=== PATIENT | female | born 1960 | race Caucasian/White ===

== ENCOUNTER 2016-07-26 10:04 | Emergency (ER) | payer OTHER ==
[~2016-07-26] VITALS: Ht 157.5 cm; Wt 114.5 kg
[~2016-07-26 10:04] MED LIST: ABAT125S; AZEL205.; CARI250T; DULO60CA7 PO; FLUT100D; GABA600T PO; HYDR200T5 PO; LEFL20TA16 PO; META800T; MONT10TA9; ONDA4TAB7; PANT40TA3; PRAV20TA2; ZOLP12.52
[2016-07-26] MEDS ORDERED: ATOR40TA78 PO (10:39)
[2016-07-26] MEDS ORDERED: DILT360C26 PO (10:39)
[2016-07-26] MEDS ORDERED: OXYcodone/APAP 5/325MG TABLET ONE (10:45)
[2016-07-26] MEDS ORDERED: DIAZEPAM 5 MG TABLET ONE (10:45)
[2016-07-26] MEDS ORDERED: DIAZEPAM 10 MG TABLET PO ONE (11:00)
[2016-07-26] MEDS ORDERED: OXYcodone/APAP 5/325MG TABLET PO ONE (11:00)
[2016-07-26 12:11] VITALS: BP 133/75
== END 2016-07-26 12:14 | disposition home or self-care (01) ==
LOC: ED 10:39
DX: S92.355A Nondisplaced fracture of fifth metatarsal bone, left foot, initial encounter for closed fracture (principal); S13.4XXA Sprain of ligaments of cervical spine, initial encounter; S93.412A Sprain of calcaneofibular ligament of left ankle, initial encounter; S80.12XA Contusion of left lower leg, initial encounter; E78.5 Hyperlipidemia, unspecified; M06.9 Rheumatoid arthritis, unspecified; J45.909 Unspecified asthma, uncomplicated; W18.09XA Striking against other object with subsequent fall, initial encounter; Y93.89 Activity, other specified; Y92.89 Other specified places as the place of occurrence of the external cause; Y99.9 Unspecified external cause status
CPT/HCPCS: 29515; 99284

== ENCOUNTER → 2016-08-10 | Outpatient (CLI) | payer OTHER ==
[~2016-08-10] MED LIST changes: +ATOR40TA78 PO; +DILT360C26 PO
== END | disposition home or self-care (01) ==
LOC: CFH 10:36
PROVIDERS: ATTEND Internal Medicine Rheumatology
DX: Z13.820 Encounter for screening for osteoporosis (principal); M81.0 Age-related osteoporosis without current pathological fracture; M85.88 Other specified disorders of bone density and structure, other site
CPT/HCPCS: 77080

== ENCOUNTER → 2017-10-08 | Outpatient (CLI) | payer OTHER ==
[~2017-10-08] MED LIST changes: +ALPR-475 PO; -AZEL205.; +AZEL205. NS; +CALCIUM PO; -CARI250T; +CARI250T PO; +CETI10TA24 PO; +CHOL5000 PO; +DEXL60CA2 PO; +DILT240C PO; +DILT300C44 PO; +DILT360C PO; +ESTR1TAB17 PO; +FAMO1TAB25 PO; -FLUT100D; +FLUT100D INH; +FLUT1AER INH; +FLUT9.9S NS; +FURO-93 PO; +Hemp Oil PO; +IPRA0.2S35 INH; +LEVA1.2524 INH; +LEVA15HF4 INH; +MOME13HF INH; +MULT-717 PO; +NABU750T PO; +ONDA4TAB13 SL; +OXYC-307 PO; +POTA10TA PO; +SULF500T36 PO; +TIZA4TAB PO; +VITA1TAB19 PO; +ZAFI20TA12 PO; +ZINC PO; +ZOLP10TA PO; +[UNRECOGNIZED DRUG - OTHER] PO
== END | disposition home or self-care (01) ==
LOC: STAR 11:20
PROVIDERS: ATTEND Surgery
DX: Z02.9 Encounter for administrative examinations, unspecified (principal)

== ENCOUNTER 2017-10-20 08:13 | Day surgery (SDC) | payer OTHER ==
[2017-10-08 13:14] VITALS: BP 122/84
[~2017-10-20] VITALS: Ht 162.6 cm; Wt 116.3 kg
[2017-10-20 09:05] VITALS: BP 122/84
[2017-10-20] MEDS ORDERED: FENTANYL PF 250 MCG/5ML ONE (09:14)
[2017-10-20] MEDS ORDERED: MIDAZOLAM 1 MG/ML, 2ML ONE (09:14)
[2017-10-20] MEDS ORDERED: PROPOFOL 10 MG/ML, 20ML ONE (09:15)
[2017-10-20] MEDS ORDERED: ROCURONIUM 10MG/ML,5ML ONE (09:16)
[2017-10-20] MEDS ORDERED: NEOSTIGMINE 1 MG/ML, 10ML ONE (09:17)
[2017-10-20] MEDS ORDERED: GLYCOPYRROLATE 0.4 MG/2 ML, 2ML ONE (09:17)
[2017-10-20] MEDS ORDERED: CEFAZOLIN 1,000 MG ONE ×2 (09:18)
[2017-10-20] MEDS ORDERED: WATER-INJECTION,STERILE 10 ML IV ONE (09:18)
[2017-10-20] MEDS ORDERED: ONDANSETRON 2MG/ML, 2ML ONE (09:19)
[2017-10-20] MEDS ORDERED: DEXAMETHASONE 4 MG/ML, 1ML ONE ×2 (09:19)
[2017-10-20] MEDS ORDERED: LACTATED RINGERS 1,000 ML IV SCH (09:19)
[2017-10-20] MEDS ORDERED: LIDOCAINE-MPF 1%, 5ML ONE (09:19)
[2017-10-20] MEDS ORDERED: PRED5TAB PO (09:24)
[2017-10-20] MEDS ORDERED: LIDOCAINE-MPF 1%, 2ML INFIL ONE (09:30)
[2017-10-20] MEDS ORDERED: BUPIVACAINE/PF 0.5% ONE (10:21)
[2017-10-20] MEDS ORDERED: HYDROCORTISONE 100 MG INJ. ONE (10:40)
[2017-10-20] MEDS ORDERED: SCOPOLAMINE PATCH, 1.5MG PATCH.TD72 TD ONE (10:46)
[2017-10-20] MEDS ORDERED: KETOROLAC 30 MG/1 ML ONE (10:58)
[2017-10-20] MEDS ORDERED: MEPERIDINE/PF 25MG/0.5ML IVPush PRN (11:00)
[2017-10-20] MEDS ORDERED: hydrALAzine 20 MG/ML, 1ML IV PRN (11:00)
[2017-10-20] MEDS ORDERED: ACETAMINOPHEN 325 MG TABLET PO PRN (11:00)
[2017-10-20] MEDS ORDERED: HALOPERIDOL 5 MG/ML IV PRN (11:00)
[2017-10-20] MEDS ORDERED: MORPHINE SULFATE 4 MG/ML, 1ML IVPush PRN (11:00)
[2017-10-20] MEDS ORDERED: DIPHENHYDRAMINE 50 MG/ML, 1ML IM PRN (11:00)
[2017-10-20] MEDS ORDERED: LABETALOL 5MG/ML, 20ML IV PRN (11:00)
[2017-10-20] MEDS ORDERED: ONDANSETRON 2MG/ML, 2ML IV PRN (11:00)
[2017-10-20] MEDS ORDERED: FENTANYL PF 100 MCG/2ML IV PRN (11:00)
[2017-10-20] MEDS ORDERED: ONDANSETRON ODT 8 MG PO PRN (11:00)
[2017-10-20] MEDS ORDERED: PHENYLEPHRINE 10 MG/ML ONE (11:05)
[2017-10-20] MEDS ORDERED: HYDROmorphone 2 MG/ML, 1ML ONE (12:18)
[2017-10-20] MEDS ORDERED: PROMETHAZINE 25 MG/ML, 1ML ONE (12:18)
[2017-10-20] MEDS ORDERED: OXYcodone 5 MG/5 ML ORAL.SOL UDC ONE (12:19)
[2017-10-20] MEDS: HYDROmorphone 2 MG/ML, 1ML IV PRN ×3 (12:20→12:40)
[2017-10-20] MEDS ORDERED: ONDANSETRON 2MG/ML, 2ML IVPush PRN (12:30)
[2017-10-20] MEDS ORDERED: morphine SULFATE 10 MG/ML, 1ML IVPush PRN (12:30)
[2017-10-20] MEDS ORDERED: OXYcodone 5 MG/5 ML ORAL.SOL UDC PO PRN (12:30)
[2017-10-20] MEDS: OXYcodone 5 MG/5 ML ORAL.SOL UDC PO PRN ×2 (12:33→16:13)
[2017-10-20] MEDS ORDERED: PROMETHAZINE 25 MG/ML, 1ML IV PRN (13:00)
== END 2017-10-20 17:15 | disposition home or self-care (01) ==
LOC: OUT 08:13 → 4NOR 14:28 → OUT 17:15
PROVIDERS: ATTEND Surgery
DX: K43.2 Incisional hernia without obstruction or gangrene (principal); E78.5 Hyperlipidemia, unspecified; K21.9 Gastro-esophageal reflux disease without esophagitis; Z88.5 Allergy status to narcotic agent; Z88.8 Allergy status to other drugs, medicaments and biological substances; Z88.1 Allergy status to other antibiotic agents; Z91.040 Latex allergy status; Z79.899 Other long term (current) drug therapy; Z90.710 Acquired absence of both cervix and uterus; Z98.890 Other specified postprocedural states; Z87.39 Personal history of other diseases of the musculoskeletal system and connective tissue; Z79.01 Long term (current) use of anticoagulants; Z72.89 Other problems related to lifestyle
CPT/HCPCS: 49654; 88305; C1781; J0690; J1100; J1170; J1720; J1885; J2250; J2370; J2405; J2550; J2704; J2710; J3010; J3490; J7120; S2900

== ENCOUNTER 2018-05-10 10:49 | Inpatient (IN) | payer OTHER ==
[~2018-05-10] VITALS: Ht 162.6 cm; Wt 119.3 kg
[~2018-05-10 10:49] MED LIST changes: +PRED5TAB PO
--- NOTE | 2018-05-10 11:27 | NUR ---
pt to ed for sob and cough x2 weeks. pt wears 2LC at night and has had to increase to 2-3LNC at all times. connected to all monitors. vss. awaiting md assessment.
--- NOTE | 2018-05-10 11:47 | NUR ---
xray at bedside.
[2018-05-10 12:02] LABS: BASOPHILS # (AUTO) 0.02 x10^3/uL (0-0.1); BASOPHILS % (AUTO) 0 % (0-1); EOSINOPHILS # (AUTO) 0.01 x10^3/uL (0-0.4); EOSINOPHILS % (AUTO) 0 % (1-7); LYMPHOCYTES # (AUTO) 1.41 x10^3/uL (1-3.4); LYMPHOCYTES % (AUTO) 19 % (22-44); MD NO; MEAN CORPUSCULAR HEMOGLOBIN 30.2 pg (27.0-34.8); MEAN CORPUSCULAR HGB CONC 33.7 g/dL (32.4-35.8); MEAN CORPUSCULAR VOLUME 89.8 fL (80-100); MEAN PLATELET VOLUME 7.3 fL (7.4-10.4); MONOCYTES # (AUTO) 0.81 x10^3/uL (0.2-0.8); MONOCYTES % (AUTO) 11 % (2-9); NEUTROPHILS # (AUTO) 5.28 x10^3/uL (1.8-6.8); NEUTROPHILS % (AUTO) 70 % (42-75); PLATELET COUNT 266 x10^3/uL (130-400); RED BLOOD COUNT 5.08 x10^6/uL (3.82-5.3); RED CELL DISTRIBUTION WIDTH 14.4 % (9.6-15.2)
--- NOTE | 2018-05-10 12:08 | NUR ---
iv established. vss. pt resting in room wtih family at bedside. awaiting lab results at this time.
[2018-05-10 12:11] LABS: ALBUMIN 3.6 g/dL (3.4-5.0); ANION GAP 7 mmol/L (5-15); CHLORIDE 109 mmol/L (98-107)
[2018-05-10 12:12] LABS: CREATININE 0.67 mg/dL (0.55-1.02)
--- NOTE | 2018-05-10 13:10 | NUR ---
pt resting in room with family at bedside. vss. awaiting d dimer results.
--- NOTE | 2018-05-10 13:19 | NUR ---
d dimer results received. new order received for cta. pt aware. no needs at this time. vss.
[2018-05-10 13:20] LABS: RAPID INFLUENZA A Negative (Negative); RAPID INFLUENZA B Negative (Negative)
[2018-05-10] MEDS ORDERED: PROMETHAZINE/COD. 10MG/6.25MG/5 ML ORAL SOL PO PRN (13:30)
--- NOTE | 2018-05-10 14:07 | NUR ---
pt to ct.
[2018-05-10] MEDS ORDERED: OMNIPAQUE 350 MG/ML, 100ML BOTTLE ONE (14:20)
--- NOTE | 2018-05-10 14:44 | NUR ---
all results back at this time. chart up for recheck. pt resting in room. vss. no needs at this time.
--- NOTE | 2018-05-10 16:02 | NUR ---
pt resting in oom. no needs at this time. vss. will be admitted. awaiting bed assignment.
[2018-05-10] MEDS ORDERED: ZOLPIDEM 10MG TABLET PO PRN (17:00)
[2018-05-10] MEDS ORDERED: LEVALBUTEROL TARTRATE INH PRN (17:00)
[2018-05-10] MEDS ORDERED: TIZANIDINE 4MG TABLET PO PRN (17:00)
[2018-05-10] MEDS ORDERED: ALBUTEROL SULFATE 2.5 MG/3 ML ONE (17:12)
[2018-05-10] MEDS ORDERED: BENZONATATE 100 MG CAPSULE ONE (17:14)
[2018-05-10] MEDS: BENZONATATE 100 MG CAPSULE PO SCH ×2 (17:27→21:13)
[2018-05-10] MEDS ORDERED: KETOROLAC 30 MG/1 ML IM PRN (17:30)
[2018-05-10] MEDS ORDERED: ACETAMINOPHEN 325 MG TABLET PO PRN (17:30)
[2018-05-10] MEDS ORDERED: IBUPROFEN 600 MG TABLET PO PRN (17:30)
[2018-05-10] MEDS ORDERED: DOCUSATE 100 MG CAPSULE PO PRN (17:30)
[2018-05-10] MEDS ORDERED: METHOCARBAMOL 500 MG TABLET PO PRN (17:30)
--- NOTE | 2018-05-10 17:31 | NUR ---
TELMA RN: PT MEDICATED PER MAR. FREQUENT, LOOSE COUGH NOTED BY RN. PT ABLE TO SPEAK IN SHORT 3-5 WORD SENTENCES BEFORE COUGHING OR SEEMING SLIGHTLY SHORT OF BREATH. PT AWARE WE ARE WAITING FOR ADMISSION. PT DENIES PAIN/NEEDS AT THIS TIME. AT BEDSIDE. CALL LIGHT WITHIN REACH.
[2018-05-10] MEDS ORDERED: ONDANSETRON ODT 4 MG SL PRN (18:00)
[2018-05-10] MEDS ORDERED: OXYcodone/APAP 5/325MG TABLET PO PRN (18:00)
[2018-05-10] MEDS ORDERED: ALBUTEROL SULFATE 2.5 MG/3 ML NPPB SCH (18:30)
[2018-05-10] MEDS ORDERED: ALBUTEROL SULFATE 2.5 MG/3 ML NPPB PRN (18:30)
[2018-05-10 19:00] VITALS: BP 125/83
[2018-05-10] MEDS: BUDESONIDE 0.5 MG/2 ML INHA INH SCH (20:40)
[2018-05-10] MEDS: ALBUTEROL SULFATE 2.5 MG/3 ML NPPB SCH (20:40)
[2018-05-10] MEDS ORDERED: GUAIFENESIN/COD200MG-20MG/10ML LIQUID PO SCH (21:00)
[2018-05-10] MEDS: AZELASTINE HCL NS SCH (21:00)
[2018-05-10] MEDS: ENOXAPARIN 40 MG/0.4 ML SQ SCH (21:12)
[2018-05-10] MEDS: ZAFIRLUKAST 20 MG TABLET PO SCH (21:12)
[2018-05-10] MEDS: FAMOTIDINE 20 MG TABLET PO SCH (21:12)
[2018-05-10] MEDS: DULOXETINE 30 MG CAPSULE.DR PO SCH (21:12)
[2018-05-10] MEDS: GABAPENTIN 300 MG CAPSULE PO SCH (21:13)
[2018-05-10] MEDS: SULFASALAZINE 500 MG TABLET PO SCH (21:13)
[2018-05-10] MEDS: FLUTICASONE NASAL SPRAY 16GM NAS SCH (21:13)
[2018-05-10] MEDS: ATORVASTATIN 80 MG TABLET PO SCH (21:15)
[2018-05-11 02:00] VITALS: BP 113/72
[2018-05-11 05:59] LABS: BASOPHILS # (AUTO) 0.01 x10^3/uL (0-0.1); BASOPHILS % (AUTO) 0 % (0-1); EOSINOPHILS # (AUTO) 0.11 x10^3/uL (0-0.4); EOSINOPHILS % (AUTO) 2 % (1-7); LYMPHOCYTES # (AUTO) 1.25 x10^3/uL (1-3.4); LYMPHOCYTES % (AUTO) 17 % (22-44); MD NO; MEAN CORPUSCULAR HGB CONC 33.5 g/dL (32.4-35.8); MEAN CORPUSCULAR VOLUME 89.8 fL (80-100); MEAN PLATELET VOLUME 7.2 fL (7.4-10.4); MONOCYTES # (AUTO) 0.66 x10^3/uL (0.2-0.8); MONOCYTES % (AUTO) 9 % (2-9); NEUTROPHILS # (AUTO) 5.34 x10^3/uL (1.8-6.8); NEUTROPHILS % (AUTO) 73 % (42-75); PLATELET COUNT 258 x10^3/uL (130-400); RED BLOOD COUNT 4.75 x10^6/uL (3.82-5.3); RED CELL DISTRIBUTION WIDTH 14.6 % (9.6-15.2)
[2018-05-11 06:03] LABS: ANION GAP 7 mmol/L (5-15); CALCIUM 8.3 mg/dL (8.5-10.1); CHLORIDE 108 mmol/L (98-107); CREATININE 0.68 mg/dL (0.55-1.02)
[2018-05-11 07:19] VITALS: BP 147/86
[2018-05-11] MEDS: ALBUTEROL SULFATE 2.5 MG/3 ML NPPB SCH ×4 (07:36→19:02)
[2018-05-11] MEDS: BUDESONIDE 0.5 MG/2 ML INHA INH SCH ×2 (07:36→19:02)
[2018-05-11] MEDS: AZELASTINE HCL NS SCH ×2 (08:55→21:00)
[2018-05-11] MEDS: FLUTICASONE NASAL SPRAY 16GM NAS SCH ×2 (08:55→21:00)
[2018-05-11] MEDS: DILTIAZEM 240 MG CAP.ER.24H PO SCH (08:56)
[2018-05-11] MEDS: GABAPENTIN 300 MG CAPSULE PO SCH ×2 (08:56→21:14)
[2018-05-11] MEDS: SULFASALAZINE 500 MG TABLET PO SCH ×2 (08:56→21:13)
[2018-05-11] MEDS: MULTIVITAMINS/MINERALS TABLET PO SCH (08:56)
[2018-05-11] MEDS: BENZONATATE 100 MG CAPSULE PO SCH ×3 (08:57→21:14)
[2018-05-11] MEDS: CHOLECALCIFEROL 5,000u TAB PO SCH (08:57)
[2018-05-11] MEDS: CETIRIZINE 10 MG TABLET PO SCH (08:57)
[2018-05-11] MEDS: HYDROXYCHLOROQUINE 200 MG TABLET PO SCH (08:57)
[2018-05-11] MEDS: MULTIVITS,STRESS FORMULA 1 TABLET PO SCH (08:57)
[2018-05-11] MEDS: GUAIFENESIN/COD200MG-20MG/10ML LIQUID PO PRN (10:10)
[2018-05-11 12:42] VITALS: BP 139/86
[2018-05-11 19:35] VITALS: BP 136/81
[2018-05-11] MEDS: ZAFIRLUKAST 20 MG TABLET PO SCH (21:00)
[2018-05-11] MEDS: FAMOTIDINE 20 MG TABLET PO SCH (21:13)
[2018-05-11] MEDS: DULOXETINE 30 MG CAPSULE.DR PO SCH (21:14)
[2018-05-11] MEDS: ENOXAPARIN 40 MG/0.4 ML SQ SCH (21:14)
[2018-05-11] MEDS: ATORVASTATIN 80 MG TABLET PO SCH (21:14)
[2018-05-12 02:11] VITALS: BP 128/81
[2018-05-12 07:00] VITALS: BP 123/83
[2018-05-12] MEDS: ALBUTEROL SULFATE 2.5 MG/3 ML NPPB SCH (07:00)
[2018-05-12] MEDS: FLUTICASONE NASAL SPRAY 16GM NAS SCH (08:22)
[2018-05-12] MEDS: DILTIAZEM 240 MG CAP.ER.24H PO SCH (08:22)
[2018-05-12] MEDS: BENZONATATE 100 MG CAPSULE PO SCH (08:23)
[2018-05-12] MEDS: SULFASALAZINE 500 MG TABLET PO SCH (08:23)
[2018-05-12] MEDS: CHOLECALCIFEROL 5,000u TAB PO SCH (08:23)
[2018-05-12] MEDS: GABAPENTIN 300 MG CAPSULE PO SCH (08:24)
[2018-05-12] MEDS: MULTIVITAMINS/MINERALS TABLET PO SCH (08:24)
[2018-05-12] MEDS: HYDROXYCHLOROQUINE 200 MG TABLET PO SCH (08:25)
[2018-05-12] MEDS: CETIRIZINE 10 MG TABLET PO SCH (08:26)
[2018-05-12] MEDS: AZELASTINE HCL NS SCH (08:26)
[2018-05-12] MEDS: GUAIFENESIN/COD200MG-20MG/10ML LIQUID PO PRN (08:29)
[2018-05-12] MEDS: MULTIVITS,STRESS FORMULA 1 TABLET PO SCH (08:36)
[2018-05-12] MEDS ORDERED: LEFLUNOMIDE 20 MG TABLET PO SCH (09:00)
[2018-05-12] MEDS: BUDESONIDE 0.5 MG/2 ML INHA INH SCH (09:00)
[2018-05-12] MEDS ORDERED: BENZ-17 PO (13:43)
[2018-05-12] MEDS ORDERED: BUDE0.5A INH (13:43)
[2018-05-12] MEDS ORDERED: PRED20TA PO (13:43)
== END 2018-05-12 16:25 | disposition home or self-care (01) | DRG 193 ==
LOC: ED 13:11 → EDIP 15:40 → 3NE 17:18
PROVIDERS: ADMIT Hospitalist; ATTEND Hospitalist
PROC: 5A09357 Assistance with Respiratory Ventilation, Less than 24 Consecutive Hours, Continuous Positive Airway Pressure (ICD-10-PCS; principal; 2018-05-12)
DX: J12.9 Viral pneumonia, unspecified (principal); J96.20 Acute and chronic respiratory failure, unspecified whether with hypoxia or hypercapnia; J45.901 Unspecified asthma with (acute) exacerbation; F11.20 Opioid dependence, uncomplicated; Z68.42 Body mass index [BMI] 45.0-49.9, adult; E78.5 Hyperlipidemia, unspecified; R00.0 Tachycardia, unspecified; G47.33 Obstructive sleep apnea (adult) (pediatric); G89.29 Other chronic pain; M06.9 Rheumatoid arthritis, unspecified; Z82.0 Family history of epilepsy and other diseases of the nervous system; Z82.49 Family history of ischemic heart disease and other diseases of the circulatory system; Z87.442 Personal history of urinary calculi; Z90.710 Acquired absence of both cervix and uterus; Z99.81 Dependence on supplemental oxygen
CPT/HCPCS: 36415; 71045; 71275; 80048; 82040; 83605; 83735; 84145; 85025; 85379; 87040; 87400; 93005; 94640; 99285; G0378; J1650; J7613; J7626; Q9967; J7512

== ENCOUNTER 2018-10-12 13:47 | Inpatient (IN) | payer MEDICARE, OTHER ==
[~2018-10-12] VITALS: Ht 162.6 cm; Wt 126.8 kg
[2018-10-19 13:30] VITALS: BP 134/84
== END 2018-10-19 17:52 | disposition home or self-care (01) | DRG 871 ==
LOC: ED 15:09 → EDIP 17:51 → 4WST 18:50
PROVIDERS: ADMIT Internal Medicine; ATTEND Internal Medicine
PROC: 0T9B70Z Drainage of Bladder with Drainage Device, Via Natural or Artificial Opening (ICD-10-PCS; principal; 2018-10-12)
DX: A41.9 Sepsis, unspecified organism (principal); J18.9 Pneumonia, unspecified organism; J96.21 Acute and chronic respiratory failure with hypoxia; F11.20 Opioid dependence, uncomplicated; J45.901 Unspecified asthma with (acute) exacerbation; E78.5 Hyperlipidemia, unspecified; G47.33 Obstructive sleep apnea (adult) (pediatric); G89.29 Other chronic pain; I10 Essential (primary) hypertension; M06.9 Rheumatoid arthritis, unspecified; J20.9 Acute bronchitis, unspecified; N20.0 Calculus of kidney; Z79.899 Other long term (current) drug therapy; Z82.0 Family history of epilepsy and other diseases of the nervous system; Z82.49 Family history of ischemic heart disease and other diseases of the circulatory system; Z87.442 Personal history of urinary calculi; Z90.710 Acquired absence of both cervix and uterus; Z88.8 Allergy status to other drugs, medicaments and biological substances; Z91.040 Latex allergy status; Z88.5 Allergy status to narcotic agent
CPT/HCPCS: 36415; 70491; 71045; 71260; 80048; 80053; 81001; 82040; 83605; 83735; 84100; 84145; 84484; 85025; 87040; 87070; 87086; 87205; 87400; 93005; 94640; 99285; G0378; J0456; J0696; J1644; J7620; J7626; Q9967; J2930; J7030; J7050; J7512

== ENCOUNTER → 2020-08-21 | Outpatient (CLI) | payer MEDICARE, OTHER ==
[~2020-08-21] MED LIST changes: -ALPR-475 PO; +ALPR0.5T7 PO; +ASPI81TA45 PO; +BENZ-17 PO; +BUDE0.5A INH; +CARV-39 PO; +CEFD300C37 PO; -CETI10TA24 PO; +CETI10TA76 PO; -DILT240C PO; +DILT240C81 PO; +DOXY100T PO; -FLUT100D INH; +FLUT100D2 INH; +LISI-167 PO; +MONT10TA17; -MONT10TA9; -NABU750T PO; +NABU750T11 PO; +NITR0.4T28 SL; -OXYC-307 PO; +OXYC-380 PO; +PRED10TA PO; +PRED20TA PO; +ROPI0.5T4 PO; +TICA90TA PO; -TIZA4TAB PO; +TIZA4TAB2 PO
== END | disposition home or self-care (01) ==
LOC: CFH 07:25
PROVIDERS: ATTEND Physician Assistant Medical
DX: R07.89 Other chest pain (principal); R06.02 Shortness of breath; R60.9 Edema, unspecified
CPT/HCPCS: 78452; 93017; A9502

== ENCOUNTER → 2020-10-10 | Outpatient (CLI) | payer MEDICARE, OTHER ==
[~2020-10-10] MED LIST changes: +REGADENOSON 0.4 MG/5 ML SYRINGE ONE
== END | disposition home or self-care (01) ==
LOC: CVU 07:43
PROVIDERS: ATTEND Physician Assistant Medical
DX: R07.89 Other chest pain (principal); R60.9 Edema, unspecified; R06.02 Shortness of breath
CPT/HCPCS: 93970; J2785